=== PATIENT | female | born 2000 | race Caucasian/White ===

== ENCOUNTER 2018-09-12 21:18 | Emergency (ER) | payer OTHER ==
[~2018-09-12] VITALS: Ht 157.5 cm; Wt 54.0 kg
[2018-09-12 21:43] VITALS: BP 131/89
== END 2018-09-12 21:39 | disposition left against medical advice (07) ==
LOC: ED 21:33
DX: R11.10 Vomiting, unspecified (principal)
CPT/HCPCS: 99281